=== PATIENT | male | born 1935 | race Caucasian/White ===

== ENCOUNTER → 2016-03-16 | Outpatient (CLI) | payer MEDICARE, OTHER ==
[~2016-03-16] MED LIST: ASPI81TA11 PO; ATOR1TAB21 PO; CELE-19 PO; LYRI75CA PO; MULTCAP PO; PERC5TAB6 PO; PERCOCET PO; TAMS0.4C2 PO; TYLE325T5 PO; VITA100041 PO; XARE10TA PO; [UNRECOGNIZED DRUG - REMARK] OR
--- NOTE | 2016-03-16 18:44 | REP ---
CHEST X-RAY PA AND LATERAL: 03/16/2016: Clinical history: Chest tightness. Comparison: 04/19/2015, 05/09/2013. Findings: The lung rivera are well inflated. There is no pleural effusion, lateral pleural thickening apical scarring or pneumothorax. Appears to be some calcified hilar nodes inferiorly on the left, unchanged from multiple prior studies. No infiltrate, effusion, atelectasis or mass. The heart is not enlarged. Aorta is normal. Airway is intact. No mediastinal or hilar contour change. The pulmonary arteries are prominent centrally suggesting some degree of pulmonary artery hypertension, stable. Degenerative changes in the spine without compression deformity. Airway intact. No free air the diaphragm. Impression: 1. No acute cardiopulmonary change. There is some old granulomatous change at the inferior hilum on the left with pulmonary hypertension, all stable. Nothing acute. Signed by Maxime Ko MD 03/16/2016 07:55 P
== END ==
LOC: M LRY 17:13
PROVIDERS: ATTEND Nurse Practitioner Family
DX: I27.2 Other secondary pulmonary hypertension (principal)
CPT/HCPCS: 71020; 93005; G0463

== ENCOUNTER → 2016-03-29 | Outpatient (CLI) | payer MEDICARE, OTHER ==
--- NOTE | 2016-03-29 11:42 | REP ---
BILATERAL RENAL ULTRASOUND: 03/29/2016. Clinical history: Hematuria. Left flank pain for 5 days. Comparison: CT 03/18/2007. Findings: Right kidney measures 10.3 x 5.7 x 4.5 cm while the left is 10.2 x 4.9 x 4.7 cm. There is slight cortical thinning and sinus lipomatosis on the right more than left. Cortical echogenicity is similar to that of the liver. This may be normal or very early medical renal disease. There is no hydronephrosis or hydroureter visible. I see no evidence of a cyst or solid mass in either kidney. There is no perinephric fluid. The bladder was not filled and ureteral jets could not be identified. Prostate is prominent measuring 4.9 x 4.9 x 4.2 cm indenting the bladder base. Impression: 1. Some mild cortical thinning and sinus lipomatosis right kidney without hydronephrosis, stone, mass, cyst or perinephric fluid. 2. Bladder not well filled and therefore cannot be evaluated. Ureteral jets cannot be seen. 3. Some enlargement of the prostate as described. Signed by Maxime Ko MD 03/29/2016 12:08 P
== END ==
LOC: M RAD 10:48
PROVIDERS: ATTEND Surgery
DX: R31.9 Hematuria, unspecified (principal); N40.0 Benign prostatic hyperplasia without lower urinary tract symptoms

== ENCOUNTER → 2016-04-05 | Outpatient (CLI) | payer MEDICARE, OTHER ==
[2016-04-05 13:45] LABS: ANION GAP 6 MEQ/L (8-16); BLOOD UREA NITROGEN 18 MG/DL (7-18); CALCIUM LEVEL 9.8 MG/DL (8.8-10.2); CARBON DIOXIDE LEVEL 31 MEQ/L (21-32); CHLORIDE LEVEL 103 MEQ/L (98-107); CREATININE FOR GFR 1.19 MG/DL (0.70-1.30); GLOMERULAR FILTRATION RATE > 60.0 (>35); GLUCOSE, FASTING 82 MG/DL (83-110); POTASSIUM SERUM 4.3 MEQ/L (3.5-5.1); SODIUM LEVEL 140 MEQ/L (136-145)
== END ==
LOC: M SMT 09:32
PROVIDERS: ATTEND Nurse Practitioner Women's Health
DX: R31.9 Hematuria, unspecified (principal)
CPT/HCPCS: 36415; 80048; 81001; 87086; 88108; G0463

== ENCOUNTER → 2016-04-17 | Outpatient (CLI) | payer MEDICARE, OTHER ==
[~2016-04-17] MED LIST changes: +ISOVUE-370 76% 100ML VIAL (Q9967) As Ordered ONE
--- NOTE | 2016-04-17 18:41 | REP ---
CT abdomen and pelvis without and with IV contrast: Without oral contrast. CT urogram: History: Hematuria. CT contrast dose: 100 mL of Isovue-370 is administered intravenously. Comparison CT study: 03/18/2007. CT findings: Preliminary digital dietary internship radiograph of the abdomen shows a normal bowel gas pattern. The lung bases are essentially clear. Minimal bibasilar linear fibrosis. There is a 3.4 cm cyst in the left lobe of the liver high near the dome of the diaphragm. Two tiny right hip by hepatic cysts are seen. There is a small 1.6 cm cyst adjacent to the a and neck of the gallbladder. These are unchanged from the 2008 prior study. There is a calcified gallstone near the neck of the gallbladder as well within the gallbladder lumen. This is a little larger than on the prior study measuring 1.6 cm in greatest diameter. No pancreatic mass or cyst is seen. No adrenal lesion is observed on either side. The kidneys enhance symmetrically and are morphologically intact. There is no evidence of intrarenal nephrolithiasis, hydronephrosis, or mass lesion. There is a small peripheral cyst projecting from the upper pole of the left kidney 1 cm in diameter. There is a another small 1 cm cyst at mid pole level in the left kidney. Delayed scan images show no filling defect in the intrarenal collecting system on either side. No ureteral stone is seen. No bladder mass is observed. The floor the bladder is elevated by an enlarged prostate. No bladder calculus is seen. Seminal vesicles are unremarkable. No pelvic mass or adenopathy is seen. There is some postoperative scarring along the right inguinal canal region. Patient is status post prior appendectomy. Also prior hernia surgery. There is left colonic diverticulosis without CT evidence of diverticulitis. No abdominal wall defect is seen. Bone window settings show no bony destructive lesion. Impression: 1. Stable hepatic cysts. 2. Cholelithiasis. 3. Small left renal cysts. 4. Enlarged prostate. 5. Postoperative changes right inguinal canal region. Signed by Claude Gamboa MD 04/17/2016 07:46 P
== END ==
LOC: M RAD 16:21
PROVIDERS: ATTEND Nurse Practitioner Women's Health
DX: R31.9 Hematuria, unspecified (principal); K76.89 Other specified diseases of liver; K80.20 Calculus of gallbladder without cholecystitis without obstruction; N28.1 Cyst of kidney, acquired; N40.1 Benign prostatic hyperplasia with lower urinary tract symptoms
CPT/HCPCS: 74178; Q9967

== ENCOUNTER → 2016-05-19 | Outpatient (CLI) | payer MEDICARE, OTHER ==
[~2016-05-19] MED LIST changes: -ISOVUE-370 76% 100ML VIAL (Q9967) As Ordered ONE
[2016-05-19 11:17] LABS: ALBUMIN 3.7 GM/DL (3.2-5.2); ALBUMIN/GLOBULIN RATIO 1.28 (1.00-1.93); BILIRUBIN,DIRECT 0.2 MG/DL (0.0-0.2); BILIRUBIN,TOTAL 0.7 MG/DL (0.2-1.0); TOTAL PROTEIN 6.6 GM/DL (6.4-8.2)
== END ==
LOC: M LAB 09:46
PROVIDERS: ATTEND Internal Medicine Cardiovascular Disease
DX: E78.00 Pure hypercholesterolemia, unspecified (principal)

== ENCOUNTER 2016-07-15 05:16 | Emergency (ER) | payer MEDICARE, OTHER ==
[~2016-07-15] VITALS: Ht 182.9 cm; Wt 102.1 kg
[2016-07-15] MEDS ORDERED: SILVER NITRATE APPLICATOR TOP ONE (05:45)
[2016-07-15] MEDS ORDERED: COCAINE 4% TOP SOLN 4 ML VIAL TOP ONE (05:45)
[2016-07-15 07:19] VITALS: BP 141/77
== END 2016-07-15 07:24 | disposition home or self-care (01) ==
LOC: EDBD 05:16 → M ED 06:39
DX: R04.0 Epistaxis (principal); M54.9 Dorsalgia, unspecified; Z87.19 Personal history of other diseases of the digestive system; Z79.899 Other long term (current) drug therapy

== ENCOUNTER → 2016-07-21 | Outpatient (REF) | payer MEDICARE, OTHER ==
[2016-07-21 13:40] LABS: BASO % 0.2 % (0.0-1.0); EOS % 6.7 % (0.0-3.0); LARGE UNSTAINED CELL % 1.9 % (0.0-4.0); LYMPH % 16.1 % (24.0-44.0); MEAN CORPUSCULAR HEMOGLOBIN 31.8 pg (27.0-33.0); MEAN CORPUSCULAR HGB CONC 33.6 g/dl (32.0-36.5); MEAN CORPUSCULAR VOLUME 94.4 fl (80.0-96.0); PLATELET COUNT, AUTOMATED 209 k/mm3 (150-450); RED CELL DISTRIBUTION WIDTH 14.3 % (11.5-14.5); WHITE BLOOD COUNT 7.3 K/mm3 (4.0-10.0)
[2016-07-21 13:41] LABS: DIFF SLIDE NUMBER 202; EOS # 0.5 K/mm3 (0.0-0.50); LARGE UNSTAINED CELL # 0.1 K/mm3 (0.0-0.4); LYMPH # 1.2 K/mm3 (1.5-4.5); MONO # 0.5 K/mm3 (0.0-0.8)
[2016-07-21 14:47] LABS: INR 1.11
== END ==
LOC: M LAB 12:30 → EDSTATUS 13:31
DX: R19.5 Other fecal abnormalities (principal)

== ENCOUNTER → 2016-08-08 | Outpatient (REF) | payer OTHER, MEDICARE | LOC: M SMT 16:52 | PROVIDERS: ATTEND Nurse Practitioner Women's Health | DX: R36.1 Hematospermia (principal) ==

== ENCOUNTER → 2016-10-18 | Outpatient (REF) | payer MEDICARE, OTHER ==
[~2016-10-18] MED LIST changes: +ASPI-101 PO; -ASPI81TA11 PO; -CELE-19 PO; +CELE1CAP4 PO; +PERC5TAB12 PO; -PERC5TAB6 PO; +VITA-182 PO; -VITA100041 PO
[2016-10-18 16:42] LABS: BASO % 0.5 % (0.0-1.0); EOS # 0.3 K/mm3 (0.0-0.50); EOS % 4.9 % (0.0-3.0); LARGE UNSTAINED CELL # 0.1 K/mm3 (0.0-0.4); LARGE UNSTAINED CELL % 1.6 % (0.0-4.0); LYMPH # 1.5 K/mm3 (1.5-4.5); LYMPH % 21.3 % (24.0-44.0); MEAN CORPUSCULAR HEMOGLOBIN 31.7 pg (27.0-33.0); MEAN CORPUSCULAR HGB CONC 33.4 g/dl (32.0-36.5); MEAN CORPUSCULAR VOLUME 94.8 fl (80.0-96.0); MONO # 0.5 K/mm3 (0.0-0.8); MONO % 8.2 % (0.0-5.0); NEUTROPHILS # 4.2 K/mm3 (1.8-7.7); NEUTROPHILS % 63.5 % (36.0-66.0); PLATELET COUNT, AUTOMATED 201 k/mm3 (150-450); RED CELL DISTRIBUTION WIDTH 13.5 % (11.5-14.5); WHITE BLOOD COUNT 6.6 K/mm3 (4.0-10.0)
[2016-10-18 18:52] LABS: ERYTHROCYTE SEDIMENTATION RATE 14 mm/hr (0-20)
== END ==
LOC: M LABDRAW1 14:20
PROVIDERS: ATTEND Physician Assistant
DX: Z96.652 Presence of left artificial knee joint (principal)

== ENCOUNTER → 2016-10-23 | Outpatient (CLI) | payer MEDICARE, OTHER ==
--- NOTE | 2016-10-23 14:44 | REP ---
THREE-PHASE BONE SCAN OF THE KNEES: HISTORY: Question artificial knee joint loosening left knee. Partial knee replacement in 2003. TECHNIQUE: 21.6 mCi technetium 99m MDP is injected and standard three-phase imaging is acquired. SCINTIGRAPHIC FINDINGS: Anterior and posterior flow images are normal. Blood pool images demonstrate a photopenic area consistent with a hemiarthroplasty in the medial compartment of the left knee. There is mildly increased early arthritic uptake in the lateral compartment of each knee on the blood pool lateral films. Delayed scan images demonstrate osteoarthritic uptake in the medial compartment and lateral compartment of the right knee and in the lateral compartment left knee. There is expected prosthesis bone interface uptake in the medial compartment left knee. No focal uptake is seen to suggest loosening. IMPRESSION: No focal area of increased uptake is seen to suggest loosening. Arthritic uptake noted bilaterally consistent with osteoarthritis. Signed by Claude Gamboa MD 10/23/2016 03:54 P
== END ==
LOC: M RAD 10:47
PROVIDERS: ATTEND Physician Assistant
DX: Z96.652 Presence of left artificial knee joint (principal)
CPT/HCPCS: 78315; A9503

== ENCOUNTER → 2016-11-10 | Outpatient (CLI) | payer MEDICARE, OTHER ==
--- NOTE | 2016-11-13 08:57 | REP ---
ULTRASOUND URINARY BLADDER AND PROSTATE: Real-time sonographic evaluation of the urinary bladder performed and demonstrates the bladder to measure 8.9 x 8.6 x 7.1 cm for a total volume of 284 mL. No mass or calculus is seen. The prostate is heterogenous on echotexture and measures 5.5 x 5.5 x 4.6 cm for a total volume of 72.7 mL. The prostate is mildly enlarged. Signed by Manuel Jean MD 11/10/2016 05:24 P
== END ==
LOC: M SMT 12:58
PROVIDERS: ATTEND Nurse Practitioner Women's Health
DX: N40.1 Benign prostatic hyperplasia with lower urinary tract symptoms (principal)

== ENCOUNTER 2016-12-20 07:45 | Outpatient (RCR) | payer MEDICARE, OTHER ==
[2017-01-15] MEDS ORDERED: FINA5TAB2 PO (08:04)
[2017-01-15] MEDS ORDERED: CODCAP PO (08:04)
[2017-01-15] MEDS ORDERED: CIPR-249 PO (08:04)
== END 2017-01-11 ==
LOC: M PT 07:45
PROVIDERS: ATTEND Orthopaedic Surgery
DX: Z51.89 Encounter for other specified aftercare (principal); Z96.652 Presence of left artificial knee joint; M25.562 Pain in left knee

== ENCOUNTER → 2017-01-09 | Outpatient (CLI) | payer MEDICARE, OTHER ==
[~2017-01-09] MED LIST changes: +CIPR-249 PO; +CODCAP PO; +FINA5TAB2 PO
--- NOTE | 2017-01-09 09:22 | ECGEPIP ---
Stationary ECG Study [facility] Test Date: 2017-01-09 Pat Name: MU CABRERA Department: Room: - Gender: M Export Coordinator: ARJ : 1935 Requested By: Evita PETER Order Number: [id number] Reading MD: Yelitza Dawn Measurements Intervals [place] Rate: 54 P: 88 [place]: 177 QRS: -23 QRSD: 110 T: 12 QT: 439 QTc: 417 Interpretive Statements SINUS BRADYCARDIA WITH MARKED SINUS ARRHYTHMIA MINIMAL VOLTAGE CRITERIA FOR LVH, CONSIDER NORMAL VARIANT Left axis deviation SIMILAR TO 04/19/15 PROMINENT PRECORD T WAVES Electronically Signed On 01-09-2017 9:22:41 EST by Yelitza Dawn
--- NOTE | 2017-01-09 09:50 | REP ---
Clinical: Benign prostatic hyperplasia. Comparison: 03/16/2016 . Technique: PA and lateral. Findings: The mediastinum and cardiac silhouette are normal. The lung rivera are clear and without acute consolidation, effusion, or pneumothorax. The skeletal structures are intact and normal. Impression: 1. No acute cardiopulmonary process. Signed by Sae Venegas MD 01/09/2017 09:41 A
[2017-01-09 10:05] LABS: MEAN CORPUSCULAR HEMOGLOBIN 31.1 pg (27.0-33.0); MEAN CORPUSCULAR HGB CONC 33.6 g/dl (32.0-36.5); MEAN CORPUSCULAR VOLUME 92.3 fl (80.0-96.0); PLATELET COUNT, AUTOMATED 217 10^3/uL (150-450); RED CELL DISTRIBUTION WIDTH 13.4 % (11.5-14.5); WHITE BLOOD COUNT 6.7 10^3/uL (4.0-10.0)
[2017-01-09 10:16] LABS: INR 1.01
[2017-01-09 10:29] LABS: ANION GAP 6 MEQ/L (8-16); BLOOD UREA NITROGEN 14 MG/DL (7-18); CALCIUM LEVEL 9.8 MG/DL (8.8-10.2); CARBON DIOXIDE LEVEL 30 MEQ/L (21-32); CHLORIDE LEVEL 105 MEQ/L (98-107); CREATININE FOR GFR 1.11 MG/DL (0.70-1.30); GLOMERULAR FILTRATION RATE > 60.0 (>35); GLUCOSE, FASTING 83 MG/DL (83-110); POTASSIUM SERUM 4.2 MEQ/L (3.5-5.1); SODIUM LEVEL 141 MEQ/L (136-145)
== END ==
LOC: M LAB 08:49
PROVIDERS: ATTEND Nurse Practitioner Women's Health
DX: Z01.818 Encounter for other preprocedural examination (principal); N40.1 Benign prostatic hyperplasia with lower urinary tract symptoms; Z79.899 Other long term (current) drug therapy

== ENCOUNTER 2017-01-18 08:55 | Day surgery (SDC) | payer MEDICARE, OTHER ==
[~2017-01-18] VITALS: Ht 182.9 cm; Wt 103.9 kg
[2017-01-18] MEDS ORDERED: LR 1,000 ML IV SCH ×2 (09:00→13:30)
[2017-01-18] MEDS ORDERED: LIDOCAINE 2% INJ 100 MG/5 ML SDV (FOR ANES.) As Ordered ONE (11:22)
[2017-01-18] MEDS ORDERED: MIDAZOLAM INJ 2 MG/2 ML VIAL (J2250) As Ordered ONE (11:22)
[2017-01-18] MEDS ORDERED: fentaNYL 100 MCG/2 ML INJECTION (J3010) As Ordered ONE (11:22)
[2017-01-18] MEDS ORDERED: PROPOFOL 200 MG/20 ML VIAL As Ordered ONE (11:22)
[2017-01-18] MEDS ORDERED: LIDOCAINE 2% 5ML JELLY UROJET As Ordered ONE (12:08)
[2017-01-18] MEDS ORDERED: KETAMINE HCL 200 MG/20 ML VIAL As Ordered ONE (12:24)
[2017-01-18] MEDS ORDERED: ONDANSETRON 4MG/2ML VIAL (J2405) As Ordered ONE (12:50)
[2017-01-18] MEDS ORDERED: ONDANSETRON 4MG/2ML VIAL (J2405) IV PRN (13:30)
[2017-01-18] MEDS ORDERED: fentaNYL 100 MCG/2 ML INJECTION (J3010) IV PRN (13:30)
[2017-01-18] MEDS ORDERED: PERCOCET 5MG/325MG TAB PO PRN (13:30)
[2017-01-18 13:45] VITALS: BP 178/93
--- NOTE | 2017-01-19 10:05 | RO ---
DATE OF PROCEDURE: 01/18/2017 PREPROCEDURE DIAGNOSIS: Benign prostatic hypertrophy. POSTPROCEDURE DIAGNOSIS: Benign prostatic hypertrophy with urinary obstruction and lower urinary tract symptoms. PROCEDURE PERFORMED: Urethral prostatic urethral lift (four implants). SURGEON: Valerio Kevin MD [employer] SUPERVISOR: ANESTHESIA: MAC. COMPLICATIONS: None. BLOOD LOSS: Minimal. HISTORY OF PRESENT ILLNESS: This is an 81-year-old male patient with bladder outlet obstruction and lower urinary tract symptoms due to benign prostatic hypertrophy. The patient has consented today for a cystoscopy, plus urethral prostatic urethral lift procedure. DESCRIPTION OF PROCEDURE: With the patient under MAC anesthesia in supine, modified, low lithotomy position, after prepping and draping the area of concern , which included the entire genitalia and abdomen, we started by introducing Urojet lidocaine 2% gel transurethrally for 10 minutes. At that moment in time, we actually introduced the cystoscope bridge, a #20-Eritrean cystoscope was inserted into the bladder. The fossa navicularis, penile urethra, bulbar urethra, membranous urethra were normal. The prostatic urethra showed a 5 cm length prostatic urethra with lateral lobes touching and no middle lobe. The bladder had multiple trabeculations, both ureteral orifices were seen excreting clear urine. There were no tumors. No stones. No foreign objects. At that moment in time, the cystoscope bridge was replaced with a UroLift delivery device. The first treatment site was the patient's left side, approximately 2 cm distal to the bladder neck. The distal tip of the delivery device was then angled laterally at approximately 20 degrees at this position to compress the lateral lobe. The trigger was pulled, thereby after putting the needle containing the implant through the prostate, the needle was then retracted, allowing one end of the implant to be delivered to the capsular area of the prostate. The implant was then tensioned to a capsules seating and removal of black monofilament. The device was then angled back toward midline and slowly advanced proximally, typically 3 to 4 mm until cystoscopic verification of the monofilament being centered in the delivery system. The urethral end piece was then affixed to the monofilament, thereby tailoring the size of the implant. Excess filament was then severed. The delivery device was then readvanced into the bladder. The delivery device was then replaced with cystoscope and bridge. The implant location and opening was confirmed cystoscopically. The same procedure was then repeated on the right side. Two additional implants were delivered just proximal to the verumontanum, again one on the right and one on the left side of the prostate following the same technique. Cystoscopy then revealed no persistent area of obstruction. A total of four implants were positioned two 2 cm away from the bladder neck and two near the verumontanum. A final cystoscopy was conducted to inspect the location and stage of each implant and second to confirm the presence of a continuous anterior channel, which was present throughout the whole prostatic urethra with irrigation flow turned off. The bladder was then filled with 200 mL of irrigation fluid to assist the patient in voiding trial after the procedure. All the instruments were removed. The patient was then allowed to sit up and passing to the recovery room. In the recovery room, the patient will have a voiding trial and a bladder scan to measure postvoid residual. There was minimal blood loss. PLAN: The patient will go home today without a catheter. He will have ciprofloxacin 500 mg one tablet by mouth twice a day and Tylenol 650 mg extended release one tablet by mouth every 8 hours for pain. He will drink 2 to 3 liters of water a day and followup at [facility] urology center in 2 weeks. There were no complications. ANNE
== END 2017-01-18 13:46 | disposition home or self-care (01) ==
LOC: M SDC 08:55
PROVIDERS: ATTEND Urology
DX: N40.1 Benign prostatic hyperplasia with lower urinary tract symptoms (principal); E78.00 Pure hypercholesterolemia, unspecified; I51.7 Cardiomegaly; I25.10 Atherosclerotic heart disease of native coronary artery without angina pectoris; R00.9 Unspecified abnormalities of heart beat; G47.30 Sleep apnea, unspecified; M19.90 Unspecified osteoarthritis, unspecified site; M54.9 Dorsalgia, unspecified; Z87.891 Personal history of nicotine dependence; Z79.2 Long term (current) use of antibiotics; Z79.899 Other long term (current) drug therapy
CPT/HCPCS: 52441; 52442; J0690; J2250; J2405; J3010; L8699

== ENCOUNTER 2017-01-23 15:09 | Emergency (ER) | payer MEDICARE, OTHER ==
[~2017-01-23] VITALS: Ht 182.9 cm; Wt 104.5 kg
[2017-01-23] MEDS ORDERED: TYLE325C PO (15:29)
--- NOTE | 2017-01-23 16:05 | REP ---
Left lower extremity Duplex Doppler venous ultrasound: Real time compression and duplex Doppler interrogation of the left lower extremity deep venous system is performed. The left common femoral, superficial femoral and popliteal veins are fully compressible with transducer pressure and demonstrate normal spontaneous and phasic flow, without evidence of deep venous thrombosis. Impression: No evidence of deep venous thrombosis of the left lower extremity femoral popliteal venous system. Signed by Manuel Jean MD 01/23/2017 03:56 P
[2017-01-23] MEDS ORDERED: IBUP80TA PO (17:34)
[2017-01-23 17:43] VITALS: BP 160/69
== END 2017-01-23 17:47 | disposition home or self-care (01) ==
LOC: M ED 15:09
DX: S86.012A Strain of left Achilles tendon, initial encounter (principal); X50.9XXA Other and unspecified overexertion or strenuous movements or postures, initial encounter; Y92.018 Other place in single-family (private) house as the place of occurrence of the external cause; Y93.89 Activity, other specified; Y99.8 Other external cause status; R22.42 Localized swelling, mass and lump, left lower limb; G47.33 Obstructive sleep apnea (adult) (pediatric); Z79.899 Other long term (current) drug therapy

== ENCOUNTER → 2017-01-26 | Outpatient (REF) | payer MEDICARE, OTHER ==
[~2017-01-26] MED LIST changes: +IBUP80TA PO; +TYLE325C PO
== END ==
LOC: M SFHCLERA 09:40
PROVIDERS: ATTEND Nurse Practitioner Family
DX: R10.9 Unspecified abdominal pain (principal)

== ENCOUNTER → 2017-02-01 | Outpatient (REF) | payer MEDICARE, OTHER | LOC: M SMT 12:47 | PROVIDERS: ATTEND Nurse Practitioner Women's Health | DX: N40.1 Benign prostatic hyperplasia with lower urinary tract symptoms (principal) ==

== ENCOUNTER → 2017-02-08 | Outpatient (CLI) | payer MEDICARE, OTHER | LOC: M RAD 16:12 | DX: M76.62 Achilles tendinitis, left leg (principal) | CPT/HCPCS: 73721 ==

== ENCOUNTER → 2019-01-16 | Outpatient (REF) | payer MEDICARE, OTHER ==
[~2019-01-16] MED LIST changes: -ASPI-101 PO; +ASPI-225 PO; -CODCAP PO; +CODCAP5 PO
[2019-01-16 12:29] LABS: BASO % 0.5 % (0.0-1.0); EOS # 0.2 10^3/uL (0.0-0.5); EOS % 3.5 % (0.0-3.0); HEMATOCRIT 44.3 % (42.0-52.0); HEMOGLOBIN 14.9 g/dl (13.5-17.5); LYMPH # 1.7 10^3/uL (1.5-5.0); LYMPH % 27.1 % (24.0-44.0); MEAN CORPUSCULAR HEMOGLOBIN 31.7 pg (27.0-33.0); MEAN CORPUSCULAR HGB CONC 33.6 g/dl (32.0-36.5); MEAN CORPUSCULAR VOLUME 94.3 fl (80.0-96.0); MONO # 0.5 10^3/uL (0.0-0.8); MONO % 8.5 % (0.0-5.0); NEUTROPHILS # 3.8 10^3/uL (1.5-8.5); NEUTROPHILS % 60.2 % (36.0-66.0); PLATELET COUNT, AUTOMATED 175 10^3/uL (150-450); WHITE BLOOD COUNT 6.2 10^3/uL (4.0-10.0)
[2019-01-16 12:51] LABS: ERYTHROCYTE SEDIMENTATION RATE 3 mm/hr (0-20)
== END ==
LOC: M LABDRAW1 12:06
PROVIDERS: ATTEND Physician Assistant
DX: M25.562 Pain in left knee (principal)

== ENCOUNTER → 2019-01-21 | Outpatient (REF) | payer MEDICARE, OTHER ==
[2019-01-21 20:07] LABS: CRYSTALS, BODY FLUID NONE SEEN (NONE SEEN); SOURCE, BODY FLUID LFT KNEE; SOURCE, BODY FLUID CRYSTALS LFT KNEE; SYNOVIAL FLUID COLOR YELLOW (YELLOW)
[2019-01-21 20:15] LABS: MUCIN CLOT TEST 4+ (4+)
[2019-01-21 20:42] LABS: SOURCE, BODY FLUID GLUCOSE LFT KNEE
[2019-01-22 09:08] LABS: BODY FLUID RHEUMATOID SCREEN NEGATIVE (NEGATIVE)
== END ==
LOC: M LAB REF 09:42
PROVIDERS: ATTEND Physician Assistant
DX: Z96.652 Presence of left artificial knee joint (principal); M25.562 Pain in left knee

== ENCOUNTER 2019-06-07 17:41 | Emergency (ER) | payer MEDICARE, OTHER ==
[~2019-06-07] VITALS: Ht 182.9 cm; Wt 99.1 kg
[~2019-06-07 17:41] MED LIST changes: -ASPI-225 PO; +ASPI81TA78 PO
[2019-06-07] MEDS ORDERED: NS 1,000 ML IV ONE (18:15)
[2019-06-07 18:38] LABS: BASO % 0.1 % (0.0-1.0); HEMOGLOBIN 14.2 g/dl (13.5-17.5); LYMPH # 0.8 10^3/uL (1.5-5.0); LYMPH % 3.7 % (24.0-44.0); MEAN CORPUSCULAR HEMOGLOBIN 31.1 pg (27.0-33.0); MEAN CORPUSCULAR HGB CONC 33.8 g/dl (32.0-36.5); MEAN CORPUSCULAR VOLUME 92.1 fl (80.0-96.0); MONO # 1.8 10^3/uL (0.0-0.8); MONO % 7.8 % (0.0-5.0); NEUTROPHILS # 19.6 10^3/uL (1.5-8.5); NEUTROPHILS % 87.5 % (36.0-66.0); PLATELET COUNT, AUTOMATED 144 10^3/uL (150-450); RED BLOOD COUNT 4.56 10^6/uL (4.30-6.10); WHITE BLOOD COUNT 22.4 10^3/uL (4.0-10.0)
[2019-06-07] MEDS ORDERED: FLEET OIL RETENTION ENEMA PR PRN (18:45)
[2019-06-07 19:01] LABS: ALBUMIN 3.1 GM/DL (3.2-5.2); BILIRUBIN,TOTAL 1.6 MG/DL (0.2-1.0); CREATININE FOR GFR 1.33 MG/DL (0.70-1.30); GLOMERULAR FILTRATION RATE 54.4 (>35); POTASSIUM SERUM 3.7 MEQ/L (3.5-5.1); TOTAL PROTEIN 6.4 GM/DL (6.4-8.2)
[2019-06-07] MEDS ORDERED: CEPHALEXIN 500 MG CAP PO ONE (20:00)
[2019-06-07] MEDS ORDERED: CEPH500C PO (20:20)
[2019-06-07] MEDS ORDERED: COLA100C5 PO (20:22)
[2019-06-07] MEDS ORDERED: MAGNESIUM CITRATE 300 ML BTL PO ONE (20:30)
[2019-06-07 21:45] VITALS: BP 143/82
--- NOTE | 2019-06-08 07:39 | REP ---
KUB ABDOMEN AND PELVIS: Two AP views of the abdomen and pelvis are performed. There is no evidence of bowel obstruction, without significant extension of small or large bowel loops. There is mild diffuse fecal material throughout the colon. Phleboliths are seen in the pelvis. There are degenerative changes of the spine. IMPRESSION: Mild fecal retention. . No evidence of bowel obstruction. Electronically Signed by Manuel Jean MD 06/08/2019 09:45 P
--- NOTE | 2019-06-08 07:41 | REP ---
CHEST, SINGLE VIEW: Single view of the chest is performed and compared to a prior study of 01/09/2017. There is mild bibasilar interstitial fibrosis. No acute infiltrate is seen. The heart is not significantly enlarged. There is mild calcification of the thoracic aorta. Mediastinal silhouette is unchanged. There are degenerative changes of the spine. IMPRESSION: No acute pulmonary disease. Electronically Signed by Manuel Jean MD 06/08/2019 09:46 P
--- NOTE | 2019-06-08 10:10 | ECGEPIP ---
[facility] - ED Test Date: 2019-06-07 Pat Name: MU CABRERA Department: Room: - Gender: Male Inspector Assembly: janneth : [id number] Requested By: Caroline Miranda Order Number: [id number] Reading MD: Saran Moreno Measurements Intervals [place] Rate: 89 P: [place]: 0 QRS: -24 QRSD: 98 T: 19 QT: 365 QTc: 445 Interpretive Statements SINUS RHYTHM WITH SINUS ARRHYTHMIA WITH FREQUENT VENTRICULAR PREMATURE COMPLEXES MINIMAL VOLTAGE CRITERIA FOR LVH, CONSIDER NORMAL VARIANT NONSPECIFIC T-WAVE ABNORMALITY ECTOPY NEW COMPARED TO 01/09/17 Electronically Signed on 06-08-2019 10:10:25 EDT by Saran Moreno
== END 2019-06-07 22:14 | disposition home or self-care (01) ==
LOC: M ED 17:41
DX: K59.00 Constipation, unspecified (principal); N30.90 Cystitis, unspecified without hematuria; R94.31 Abnormal electrocardiogram [ECG] [EKG]; I48.91 Unspecified atrial fibrillation; Z79.899 Other long term (current) drug therapy

== ENCOUNTER → 2019-07-18 | Outpatient (REF) | payer MEDICARE, OTHER ==
[~2019-07-18] MED LIST changes: +CEPH500C PO; +COLA100C5 PO
[2019-07-18 19:02] LABS: APPEARANCE, URINE CLEAR (CLEAR); BACTERIA, URINE AUTO NEGATIVE (NEGATIVE); BILIRUBIN, URINE AUTO NEGATIVE (NEGATIVE); BLOOD, URINE BLOOD NEGATIVE (NEGATIVE); COLOR, URINE YELLOW (YELLOW); GLUCOSE, URINE (UA) AUTO NEGATIVE (NEGATIVE); KETONE, URINE AUTO NEGATIVE (NEGATIVE); LEUKOCYTE ESTERASE, URINE AUTO NEGATIVE (NEGATIVE); MUCUS, URINE SMALL (NEGATIVE); NITRITE, URINE AUTO NEGATIVE (NEGATIVE); PROTEIN, URINE AUTO NEGATIVE (NEGATIVE); RBC, URINE AUTO 3 /HPF (0-3); SPECIFIC GRAVITY URINE AUTO 1.021 (1.002-1.035); SQUAMOUS EPITHELIAL CELL UR AU 0 /HPF (0-6); UROBILINOGEN, URINE AUTO 0.2 mg/dL (0.0-2.0); WBC, URINE AUTO 1 /HPF (0-3)
== END ==
LOC: M SMT 18:13
PROVIDERS: ATTEND Nurse Practitioner Women's Health
DX: R31.9 Hematuria, unspecified (principal)
CPT/HCPCS: 81001; 87086; G0463

== ENCOUNTER → 2020-07-05 | Outpatient (CLI) | payer MEDICARE, OTHER ==
[2020-07-05 14:20] LABS: ALBUMIN 3.6 GM/DL (3.2-5.2); CALCIUM LEVEL 9.1 MG/DL (8.8-10.2); CREATININE FOR GFR 1.24 MG/DL (0.70-1.30); GLOMERULAR FILTRATION RATE 58.8 (>35); PHOSPHORUS LEVEL 3.2 MG/DL (2.5-4.9); POTASSIUM SERUM 4.5 MEQ/L (3.5-5.1)
== END ==
LOC: M WUC 11:58
PROVIDERS: ATTEND Internal Medicine Cardiovascular Disease
DX: I50.42 Chronic combined systolic (congestive) and diastolic (congestive) heart failure (principal)

== ENCOUNTER → 2020-07-08 | Outpatient (CLI) | payer MEDICARE, OTHER ==
--- NOTE | 2020-07-13 14:51 | SLEEPHOME ---
DATE: 07/08/2020 ORDERED BY: Avinash Kuo MD Diagnostic home sleep testing was performed due to concern for the obstructive sleep apnea syndrome in this patient with a history of cor pulmonale. For testing, a nocturnal T3 respiratory monitoring device was used. Continuous record was made of pulse, oxygen saturation, air flow, chest and abdominal strain, and body position. Nine hours and 59 minutes of data were reviewed. There were 8 hours and 4 minutes marked as time in bed. During the interval marked time in bed, there were 126 respiratory events identified of 10 seconds in duration or greater for a respiratory event index of 15.6. The events were primarily obstructive. However, 46 mixed and central apneas were also seen. Baseline pulse rate was 59. Pulse rate ranged 32 to 95. Baseline saturation was 93%. Saturations fell to 86%. Testing was performed in both the supine and nonsupine positions. IMPRESSION: Abnormal home sleep testing with repetitive respiratory events and oxygen desaturations to 86% with a respiratory event index of 15.6 is consistent with the obstructive sleep apnea syndrome. RECOMMENDATION: The patient should be encouraged to undergo a formal sleep evaluation.
== END ==
LOC: M SLEEP HO 09:04
PROVIDERS: ATTEND Internal Medicine Cardiovascular Disease
DX: I27.81 Cor pulmonale (chronic) (principal); G47.31 Primary central sleep apnea

== ENCOUNTER → 2020-09-02 | Outpatient (REF) | payer MEDICARE, OTHER ==
[2020-09-02 17:31] LABS: APPEARANCE, URINE HAZY (CLEAR); BACTERIA, URINE AUTO NEGATIVE (NEGATIVE); BILIRUBIN, URINE AUTO NEGATIVE (NEGATIVE); BLOOD, URINE BLOOD NEGATIVE (NEGATIVE); COLOR, URINE AMBER (YELLOW); GLUCOSE, URINE (UA) AUTO NEGATIVE (NEGATIVE); KETONE, URINE AUTO NEGATIVE (NEGATIVE); LEUKOCYTE ESTERASE, URINE AUTO NEGATIVE (NEGATIVE); MUCUS, URINE SMALL (NEGATIVE); NITRITE, URINE AUTO NEGATIVE (NEGATIVE); PROTEIN, URINE AUTO 1+ mg/dL (NEGATIVE); RBC, URINE AUTO 1 /HPF (0-3); SPECIFIC GRAVITY URINE AUTO 1.025 (1.002-1.035); SQUAMOUS EPITHELIAL CELL UR AU 1 /HPF (0-6); WBC, URINE AUTO 2 /HPF (0-3)
== END ==
LOC: M SMT 16:55
PROVIDERS: ATTEND Nurse Practitioner Women's Health
DX: N40.1 Benign prostatic hyperplasia with lower urinary tract symptoms (principal)
CPT/HCPCS: 51798; 81001; 87086; G0463

== ENCOUNTER → 2020-10-21 | Outpatient (CLI) | payer MEDICARE, OTHER ==
[2020-10-21 19:56] LABS: ALBUMIN 3.7 GM/DL (3.2-5.2); BILIRUBIN,TOTAL 0.9 MG/DL (0.2-1.0); CALCIUM LEVEL 9.5 MG/DL (8.8-10.2); CREATININE FOR GFR 1.29 MG/DL (0.70-1.30); GLOMERULAR FILTRATION RATE 56.1 (>35); POTASSIUM SERUM 4.7 MEQ/L (3.5-5.1); TOTAL PROTEIN 6.4 GM/DL (6.4-8.2)
[2020-10-21 19:59] LABS: BASO % 0.3 % (0.0-1.0); EOS # 0.3 10^3/uL (0.0-0.5); EOS % 4.3 % (0.0-3.0); HEMATOCRIT 42.1 % (42.0-52.0); HEMOGLOBIN 13.9 g/dl (13.5-17.5); LYMPH % 29.2 % (24.0-44.0); MEAN CORPUSCULAR HEMOGLOBIN 31.6 pg (27.0-33.0); MEAN CORPUSCULAR VOLUME 95.7 fl (80.0-96.0); MONO # 0.6 10^3/uL (0.0-0.8); MONO % 9.3 % (2.0-8.0); NEUTROPHILS # 3.9 10^3/uL (1.5-8.5); NEUTROPHILS % 56.6 % (36.0-66.0); PLATELET COUNT, AUTOMATED 202 10^3/uL (150-450); WHITE BLOOD COUNT 6.9 10^3/uL (4.0-10.0)
== END ==
LOC: M WUC 15:20
PROVIDERS: ATTEND Internal Medicine Cardiovascular Disease
DX: I08.0 Rheumatic disorders of both mitral and aortic valves (principal); I50.42 Chronic combined systolic (congestive) and diastolic (congestive) heart failure; I11.0 Hypertensive heart disease with heart failure; I27.81 Cor pulmonale (chronic)

== ENCOUNTER → 2020-10-25 | Outpatient (CLI) | payer MEDICARE, OTHER ==
--- NOTE | 2020-10-25 15:00 | REP ---
INDICATION: CONSTIPATION. COMPARISON: Radiographs 06/07/2019. TECHNIQUE: Supine and erect views of the abdomen, frontal view chest. FINDINGS: There is no evidence of free intraperitoneal air, ileus or obstruction. No significantly dilated small bowel loops are seen. Metallic clips are seen in the pelvis. Phleboliths are also seen in the pelvis. There is gallstone in the right upper quadrant 1.9 cm in diameter. There are moderate degenerative changes of the spine. No infiltrate is seen in either lung. The heart is normal in size. The mediastinal silhouette is unremarkable. IMPRESSION: No free air or obstruction. No evidence of fecal impaction. Right upper quadrant gallstone 1.9 cm. <Electronically signed by Manuel Jean > 10/25/20 [id number]
== END ==
LOC: M WUC 14:30
PROVIDERS: ATTEND Internal Medicine
DX: K59.00 Constipation, unspecified (principal)

== ENCOUNTER → 2020-11-22 | Outpatient (CLI) | payer MEDICARE, OTHER ==
[2020-11-22 21:32] LABS: ALBUMIN 3.4 GM/DL (3.2-5.2); CALCIUM LEVEL 9.1 MG/DL (8.8-10.2); CREATININE FOR GFR 1.3 MG/DL (0.70-1.30); GLOMERULAR FILTRATION RATE 55.6 (>35); PHOSPHORUS LEVEL 4.1 MG/DL (2.5-4.9); POTASSIUM SERUM 4.4 MEQ/L (3.5-5.1)
== END ==
LOC: M WUC 15:39
PROVIDERS: ATTEND Internal Medicine Cardiovascular Disease
DX: I50.42 Chronic combined systolic (congestive) and diastolic (congestive) heart failure (principal)

== ENCOUNTER → 2021-06-20 | Outpatient (CLI) | payer MEDICARE, OTHER ==
[2021-06-20 15:57] LABS: BASO % 0.3 % (0.0-1.0); EOS # 0.2 10^3/uL (0.0-0.5); EOS % 2.1 % (0.0-3.0); HEMATOCRIT 40.6 % (42.0-52.0); HEMOGLOBIN 13.7 g/dl (13.5-17.5); LYMPH # 1.3 10^3/uL (1.5-5.0); LYMPH % 16.8 % (24.0-44.0); MEAN CORPUSCULAR HEMOGLOBIN 31.9 pg (27.0-33.0); MEAN CORPUSCULAR HGB CONC 33.7 g/dl (32.0-36.5); MEAN CORPUSCULAR VOLUME 94.6 fl (80.0-96.0); MONO # 0.6 10^3/uL (0.0-0.8); MONO % 7.6 % (2.0-8.0); NEUTROPHILS # 5.8 10^3/uL (1.5-8.5); NEUTROPHILS % 72.9 % (36.0-66.0); PLATELET COUNT, AUTOMATED 180 10^3/uL (150-450); RED BLOOD COUNT 4.29 10^6/uL (4.30-6.10); WHITE BLOOD COUNT 7.9 10^3/uL (4.0-10.0)
[2021-06-20 16:22] LABS: ALBUMIN 3.8 GM/DL (3.2-5.2); ALT/SGPT 31 U/L (12-78); BILIRUBIN,TOTAL 0.8 MG/DL (0.2-1.0); BLOOD UREA NITROGEN 14 MG/DL (7-18); CALCIUM LEVEL 10.2 MG/DL (8.8-10.2); CARBON DIOXIDE LEVEL 26 MEQ/L (21-32); CHLORIDE LEVEL 109 MEQ/L (98-107); CREATININE FOR GFR 1.14 MG/DL (0.70-1.30); GLOMERULAR FILTRATION RATE > 60.0 (>35); GLUCOSE, FASTING 79 MG/DL (70-100); NT-PRO BNP 652 PG/ML (<450); SODIUM LEVEL 141 MEQ/L (136-145); TOTAL PROTEIN 6.4 GM/DL (6.4-8.2)
== END ==
LOC: M WUC 14:50
PROVIDERS: ATTEND Internal Medicine Cardiovascular Disease
DX: I11.0 Hypertensive heart disease with heart failure (principal); I50.42 Chronic combined systolic (congestive) and diastolic (congestive) heart failure; I27.81 Cor pulmonale (chronic)

== ENCOUNTER → 2021-09-08 | Outpatient (CLI) | payer OTHER | LOC: M WUC 13:30 | DX: M17.0 Bilateral primary osteoarthritis of knee (principal) ==

== ENCOUNTER → 2021-10-04 | Outpatient (REF) | payer MEDICARE, OTHER ==
[2021-10-04 17:41] LABS: APPEARANCE, URINE MANUAL CLEAR (CLEAR); BILIRUBIN, URINE MANUAL NEGATIVE (NEGATIVE); COLOR, URINE MANUAL YELLOW (YELLOW); GLUCOSE, URINE (UA) MANUAL NEGATIVE (NEGATIVE); KETONE, URINE MANUAL NEGATIVE (NEGATIVE); PROTEIN, URINE MANUAL NEGATIVE (NEGATIVE); SPECIFIC GRAVITY,URINE MANUAL 1.025 (1.002-1.035); UROBILINOGEN, URINE MANUAL NORMAL (NORMAL)
[2021-10-04 17:42] LABS: BLOOD URINE MANUAL NEGATIVE (NEGATIVE); LEUKOCYTE ESTERASE, URINE MAN NEGATIVE (NEGATIVE); NITRITE, URINE MANUAL NEGATIVE (NEGATIVE)
== END ==
LOC: M SMT 16:51
PROVIDERS: ATTEND Nurse Practitioner Women's Health
DX: R35.0 Frequency of micturition (principal)

== ENCOUNTER → 2021-11-03 | Outpatient (CLI) | payer MEDICARE, OTHER ==
[~2021-11-03] MED LIST changes: +ISOVUE-370 76% 100ML VIAL As Ordered ONE
== END ==
LOC: M RAD 10:23
PROVIDERS: ATTEND Internal Medicine
DX: R06.00 Dyspnea, unspecified (principal); R63.4 Abnormal weight loss; R59.0 Localized enlarged lymph nodes; K80.20 Calculus of gallbladder without cholecystitis without obstruction; K76.89 Other specified diseases of liver; J47.9 Bronchiectasis, uncomplicated
CPT/HCPCS: 71260; Q9967

== ENCOUNTER → 2022-03-07 | Outpatient (CLI) | payer MEDICARE, OTHER ==
[~2022-03-07] MED LIST changes: -ISOVUE-370 76% 100ML VIAL As Ordered ONE
[2022-03-07 17:43] LABS: ALBUMIN 3.7 G/DL (3.2-5.2); ALKALINE PHOSPHATASE 27 U/L (46-116); ALT/SGPT 31 U/L (7.0-40); AST/SGOT 24 U/L (<34); BILIRUBIN,TOTAL 0.6 MG/DL (0.3-1.2); BLOOD UREA NITROGEN 19 MG/DL (9-23); CALCIUM LEVEL 9.4 MG/DL (8.3-10.6); CARBON DIOXIDE LEVEL 29 MMOL/L (20-31); CHLORIDE LEVEL 104 MMOL/L (98-107); CHOLESTEROL LEVEL 134 MG/DL (<200); CHOLESTEROL RISK RATIO 2.92 (<5); CREATININE FOR GFR 1.01 MG/DL (0.70-1.30); GLOMERULAR FILTRATION RATE > 60.0 (>35); GLUCOSE, FASTING 80 MG/DL (74-106); HDL CHOLESTEROL 45.8 MG/DL (>40); LDL CHOLESTEROL 64.4 MG/DL (<100); NON-HDL-C 88 MG/DL; POTASSIUM SERUM 4.1 MMOL/L (3.5-5.1); SODIUM LEVEL 141 MMOL/L (136-145); TOTAL PROTEIN 6.4 G/DL (5.7-8.2); TRIGLYCERIDES LEVEL 119 MG/DL (<150)
== END ==
LOC: M WUC 13:17
PROVIDERS: ATTEND Internal Medicine
DX: I50.9 Heart failure, unspecified (principal); E78.5 Hyperlipidemia, unspecified

== ENCOUNTER → 2022-03-31 | Outpatient (CLI) | payer MEDICARE, OTHER | LOC: M SOG 11:37 | PROVIDERS: ATTEND Orthopaedic Surgery | DX: M25.569 Pain in unspecified knee (principal); Z96.652 Presence of left artificial knee joint; M25.761 Osteophyte, right knee ==